=== PATIENT | female | born 1995 | race African-American/Black ===

== ENCOUNTER 2018-06-09 11:32 | Outpatient (CLI) | payer OTHER ==
[2018-06-09 13:34] VITALS: BP 113/77
== END 2018-06-09 13:49 | disposition home or self-care (01) ==
LOC: TRG 11:32
PROVIDERS: ATTEND Obstetrics & Gynecology
DX: O47.1 False labor at or after 37 completed weeks of gestation (principal); Z3A.39 39 weeks gestation of pregnancy
CPT/HCPCS: 59025

== ENCOUNTER 2018-06-09 23:34 | Outpatient (CLI) | payer OTHER ==
[2018-06-11 21:44] VITALS: BP 110/56
== END 2018-06-10 00:52 | disposition home or self-care (01) ==
LOC: TRG 23:34
PROVIDERS: ATTEND Obstetrics & Gynecology
DX: O62.8 Other abnormalities of forces of labor (principal); Z3A.39 39 weeks gestation of pregnancy
CPT/HCPCS: 59025

== ENCOUNTER 2018-06-10 19:35 | Outpatient (CLI) | payer OTHER ==
[2018-06-10 23:05] VITALS: BP 110/74
[2018-06-10] MEDS ORDERED: VISTARIL PO PRN (23:47)
== END 2018-06-11 00:42 | disposition home or self-care (01) ==
LOC: TRG 19:35
PROVIDERS: ATTEND Obstetrics & Gynecology
DX: O47.1 False labor at or after 37 completed weeks of gestation (principal); Z3A.40 40 weeks gestation of pregnancy
CPT/HCPCS: 59025

== ENCOUNTER 2018-06-11 09:59 | Inpatient (IN) | payer OTHER ==
[2018-06-11] MEDS ORDERED: BRETHINE IVP PRN (11:45)
[2018-06-11] MEDS ORDERED: XYLOCAINE 2% INFILTRATI ONE (11:45)
[2018-06-11] MEDS ORDERED: BRETHINE SUB-Q PRN (11:45)
[2018-06-11] MEDS ORDERED: STADOL IV PRN (11:45)
[2018-06-11] MEDS ORDERED: MINERAL OIL PO PRN (11:45)
[2018-06-11] MEDS ORDERED: SUBLIMAZE IV PRN (11:45)
[2018-06-11] MEDS ORDERED: PITOCin/NS 30 UNIT/500ML 30 UNITS/500 ML BAG IV SCH ×2 (12:00)
[2018-06-11] MEDS ORDERED: LACTATED RINGERS 1,000 ML IV SCH ×2 (12:00→21:00)
[2018-06-11] MEDS ORDERED: PITOCin/NS 20 UNIT/1000ML DRIP 20 UNITS/1,000 ML BAG IV SCH ×2 (12:00→21:00)
[2018-06-11 13:15] LABS: Hematocrit 39.5 % (30.3-42.9); Hemoglobin 13.4 gm/dl (10.1-14.3); Mean Corpuscular HGB Conc 34 % (30-34); Mean Corpuscular Hemoglobin 31 pg (28-32); Mean Corpuscular Volume 91 fl (79-97); Platelet Count 172 K/mm3 (140-440); Red Blood Count 4.36 M/mm3 (3.65-5.03)
--- NOTE | 2018-06-11 13:26 | History and Physical Report ---
History of Present Illness Date of examination: 06/11/18 Date of admission: 06/11/18 10:00 History of present illness: 23 yo active labor. First trimester entry into care at 10 weeks gestation. Uncomplicated course. GBS negative. Denies VB, LOF. +FM reported. Past History Past Medical History: no pertinent history Past Surgical History: no surgical history Family/Genetic History: none Social history: - Obstetrical History Expected Date of Delivery: 06/10/18 Actual Gestation: 40 Week(s) 1 Day(s) : 1 Medications and Allergies Allergies Allergy/AdvReac Type Severity Reaction Status Date / Time No Known Allergies Allergy Verified 06/11/18 13:59 Home Medications Medication Instructions Recorded Confirmed Last Taken Type No Known Home Medications [No 06/11/18 06/11/18 Unknown History Reported Home Medications] Pnv,Calcium 72/Iron/Folic Acid 1 each PO DAILY 06/11/18 06/11/18 3 Days Ago History [Pnv Plus Multivit Tab] ~06/08/18 Active Meds: Active Medications Butorphanol Tartrate (Stadol) 2 mg IV Q2H PRN PRN Reason: Pain , Severe (7-10) Ephedrine Sulfate (Ephedrine Sulfate) 10 mg IV Q2M PRN PRN Reason: Hypotension Fentanyl (Sublimaze) 100 mcg IV Q2H PRN PRN Reason: Labor Pain Lactated Ringer's (Lactated Ringers) 1,000 mls @ 125 mls/hr IV DIRECT KENZIE Oxytocin/Sodium Chloride (Pitocin/Ns 20 Unit/1000ml Drip) 20 units in 1,000 mls @ 125 mls/hr IV DIRECT KENZIE Oxytocin/Sodium Chloride (Pitocin/Ns 30 Unit/500ml) 30 units in 500 mls @ 1 mls /hr IV TITR KENZIE; Protocol Oxytocin/Sodium Chloride (Pitocin/Ns 30 Unit/500ml) 30 units in 500 mls @ 4 mls /hr IV TITR KENZIE; Protocol Mineral Oil (Mineral Oil) 30 ml PO QHS PRN PRN Reason: Constipation Terbutaline Sulfate (Brethine) 0.25 mg SUB-Q ONCE PRN PRN Reason: Hyperstimulation/Hypertonicity Terbutaline Sulfate (Brethine) 0.25 mg IVP ONCE PRN PRN Reason: Hyperstimulation/Hypertonicity Review of Systems All systems: negative Genitourinary: normal appearance, contractions, no vaginal bleeding, no leakage of fluid - Physical Exam Abdomen: Positive: normal appearance, soft Genitourinary (Female): Positive: normal external genitalia, normal perenium - Obstetrical FHR: category 1 Uterine Contraction Monitor Mode: External Results Result Diagrams: 06/11/18 12:53 Abnormal lab results 06/11/18 Range/Units 12:53 WBC 14.0 H (4.5-11.0) K/mm3 RDW 13.0 L (13.2-15.2) % All other labs normal. Assessment and Plan A: IUP at term Active Labor P: Anticipate
[2018-06-11] MEDS ORDERED: NACL 0.9% 500 ML 500 ML IV ONE (17:53)
--- NOTE | 2018-06-11 17:53 | Progress Note ---
Assessment and Plan A: IUP at 40.1 Transitional Labor Gurjit Vaginal Bleeding P: consult-[facility] AROM Pitocin off Close erin't Type cross match Subjective - Subjective Date of service: 06/11/18 Interval history: 23 yo active labor. First trimester entry into care at 10 weeks gestation. Uncomplicated course. GBS negative. Denies VB, LOF. +FM reported. Patient reports: vaginal bleeding, contractions, other, no new complaints, no loss of fluid Objective - Vital Signs Vital Signs: Vital Signs - 12hr 06/11/18 06/11/18 06/11/18 14:11 14:15 14:16 Temperature 98.2 F Pulse Rate 76 82 Blood Pressure 123/74 O2 Sat by Pulse 95 Oximetry 06/11/18 06/11/18 06/11/18 14:21 14:24 14:26 Temperature Pulse Rate 74 55 L 86 Blood Pressure O2 Sat by Pulse 96 81 L 95 Oximetry 06/11/18 06/11/18 06/11/18 14:30 14:31 14:42 Temperature Pulse Rate 71 70 70 Blood Pressure O2 Sat by Pulse 94 96 97 Oximetry 06/11/18 06/11/18 06/11/18 14:47 14:52 14:55 Temperature Pulse Rate 73 77 79 Blood Pressure O2 Sat by Pulse 96 97 93 Oximetry 06/11/18 06/11/18 06/11/18 14:58 15:03 15:08 Temperature Pulse Rate 93 H 72 64 Blood Pressure O2 Sat by Pulse 97 96 96 Oximetry 06/11/18 06/11/18 06/11/18 15:13 15:18 15:21 Temperature Pulse Rate 71 89 72 Blood Pressure O2 Sat by Pulse 96 97 94 Oximetry 06/11/18 06/11/18 06/11/18 15:23 15:28 15:33 Temperature Pulse Rate 75 68 68 Blood Pressure O2 Sat by Pulse 96 97 97 Oximetry 06/11/18 06/11/18 06/11/18 15:35 15:38 15:43 Temperature Pulse Rate 83 80 Blood Pressure O2 Sat by Pulse 25 L 96 97 Oximetry 06/11/18 06/11/18 06/11/18 15:45 15:48 15:53 Temperature Pulse Rate 66 78 84 Blood Pressure 129/82 O2 Sat by Pulse 96 96 Oximetry 06/11/18 06/11/18 06/11/18 15:58 16:02 16:03 Temperature Pulse Rate 92 H 94 H 66 Blood Pressure O2 Sat by Pulse 96 94 95 Oximetry 06/11/18 06/11/18 06/11/18 16:08 16:13 16:18 Temperature Pulse Rate 84 82 70 Blood Pressure O2 Sat by Pulse 97 96 98 Oximetry 06/11/18 16:23 Temperature Pulse Rate 75 Blood Pressure O2 Sat by Pulse 97 Oximetry - Exam Breasts: deferred Abdomen: Present: normal appearance, soft. Absent: distention FHR: category 1 Uterine Contraction Monitor Mode: External Cervical Dilatation: 7 Cervical Effacement Percentage: 90 station: -1 Uterine Contraction Frequency (min): 2-4 Uterine Contraction Duration: 60-80 Uterine Contraction Pattern: Regular Uterine Tone Measurement Phase: Resting Uterine Contraction Intensity: Moderate - Labs Labs: Abnormal Labs 06/11/18 12:53 WBC 14.0 H RDW 13.0 L Laboratory Results - last 24 hr 06/11/18 06/11/18 12:53 12:53 WBC 14.0 H RBC 4.36 Hgb 13.4 Hct 39.5 MCV 91 MCH 31 MCHC 34 RDW 13.0 L Plt Count 172 Blood Type B POSITIVE Antibody Screen Negative
--- NOTE | 2018-06-11 18:00 | History and Physical Report ---
History of Present Illness Date of examination: 06/11/18 Date of admission: 06/11/18 10:00 History of present illness: 21 yo LMP EDC 06/12/18 @ 39.6 weeks gestation presented to triage 3 cm and changed to 4cm after 2hours of ambulation. Currently 5cm. Transfer into care at 36 weeks gestation. H/o PIH and IUGR previous with 36 week induction. Questionable history of thyroid dysfunction. Ascus pap with HPV. Negative GBS. Past History Past Medical History: no pertinent history Past Surgical History: no surgical history Family/Genetic History: none Social history: no significant social history, - Obstetrical History Expected Date of Delivery: 06/12/18 Actual Gestation: 39 Week(s) 6 Day(s) : 2 Para: 1 Hx # Term Pregnancies: 0 Number of Pregnancies: 1 Number of Living Children: 1 Medications and Allergies Allergies Allergy/AdvReac Type Severity Reaction Status Date / Time No Known Allergies Allergy Verified 06/11/18 13:59 Home Medications Medication Instructions Recorded Confirmed Last Taken Type No Known Home Medications [No 06/11/18 06/11/18 Unknown History Reported Home Medications] Pnv,Calcium 72/Iron/Folic Acid 1 each PO DAILY 06/11/18 06/11/18 3 Days Ago History [Pnv Plus Multivit Tab] ~06/08/18 Active Meds: Active Medications Butorphanol Tartrate (Stadol) 2 mg IV Q2H PRN PRN Reason: Pain , Severe (7-10) Ephedrine Sulfate (Ephedrine Sulfate) 10 mg IV Q2M PRN PRN Reason: Hypotension Fentanyl (Sublimaze) 100 mcg IV Q2H PRN PRN Reason: Labor Pain Lactated Ringer's (Lactated Ringers) 1,000 mls @ 125 mls/hr IV DIRECT KENZIE Last Admin: 06/11/18 15:54 Dose: 125 mls/hr Oxytocin/Sodium Chloride (Pitocin/Ns 20 Unit/1000ml Drip) 20 units in 1,000 mls @ 125 mls/hr IV DIRECT KENZIE Oxytocin/Sodium Chloride (Pitocin/Ns 30 Unit/500ml) 30 units in 500 mls @ 1 mls /hr IV TITR KENZIE; Protocol Oxytocin/Sodium Chloride (Pitocin/Ns 30 Unit/500ml) 30 units in 500 mls @ 4 mls /hr IV TITR KENZIE; Protocol Last Admin: 06/11/18 15:57 Dose: 4 ml/hr, 4 mls/hr Sodium Chloride (Nacl 0.9% 500 Ml) 500 mls @ 0 mls/hr IV ONCE ONE Stop: 06/11/18 17:54 Mineral Oil (Mineral Oil) 30 ml PO QHS PRN PRN Reason: Constipation Terbutaline Sulfate (Brethine) 0.25 mg SUB-Q ONCE PRN PRN Reason: Hyperstimulation/Hypertonicity Terbutaline Sulfate (Brethine) 0.25 mg IVP ONCE PRN PRN Reason: Hyperstimulation/Hypertonicity - Vital Signs Vital signs: Vital Signs Temp 98.2 F 06/11/18 14:11 Temp Pulse Resp BP Pulse Ox 98.2 F 75 129/82 97 06/11/18 14:11 06/11/18 16:23 06/11/18 15:45 06/11/18 16:23 Results Result Diagrams: 06/11/18 12:53 Abnormal lab results 06/11/18 06/11/18 Range/Units 12:53 12:53 WBC 14.0 H (4.5-11.0) K/mm3 RDW 13.0 L (13.2-15.2) % Crossmatch See Detail All other labs normal.
[2018-06-11] MEDS ORDERED: XYLOCAINE MPF 2% ONE ×4 (20:07→22:08)
[2018-06-11] MEDS ORDERED: PEPCID IV ONE (20:16)
[2018-06-11] MEDS ORDERED: BICITRA PO ONE (20:16)
[2018-06-11] MEDS ORDERED: REGLAN IV ONE (20:16)
--- NOTE | 2018-06-11 20:22 | Progress Note ---
Assessment and Plan O: complete since 1839, active pushing, minimal descent moderate bleeding, non active A: IUP at term second stage of arrest of descent maternal exhaustion maternal bleeding P: at , evaluated Primary C/S called Subjective - Subjective Date of service: 06/11/18 Patient reports: vaginal bleeding (moderate bleeding, small clots), contractions , other, no new complaints, no loss of fluid Objective - Vital Signs Vital Signs: Vital Signs - 12hr 06/11/18 06/11/18 06/11/18 14:11 14:15 14:16 Temperature 98.2 F Pulse Rate 76 82 Respiratory Rate Blood Pressure 123/74 O2 Sat by Pulse 95 Oximetry 06/11/18 06/11/18 06/11/18 14:21 14:24 14:26 Temperature Pulse Rate 74 55 L 86 Respiratory Rate Blood Pressure O2 Sat by Pulse 96 81 L 95 Oximetry 06/11/18 06/11/18 06/11/18 14:30 14:31 14:42 Temperature Pulse Rate 71 70 70 Respiratory Rate Blood Pressure O2 Sat by Pulse 94 96 97 Oximetry 06/11/18 06/11/18 06/11/18 14:47 14:52 14:55 Temperature Pulse Rate 73 77 79 Respiratory Rate Blood Pressure O2 Sat by Pulse 96 97 93 Oximetry 06/11/18 06/11/18 06/11/18 14:58 15:03 15:08 Temperature Pulse Rate 93 H 72 64 Respiratory Rate Blood Pressure O2 Sat by Pulse 97 96 96 Oximetry 06/11/18 06/11/18 06/11/18 15:13 15:18 15:21 Temperature Pulse Rate 71 89 72 Respiratory Rate Blood Pressure O2 Sat by Pulse 96 97 94 Oximetry 06/11/18 06/11/18 06/11/18 15:23 15:28 15:33 Temperature Pulse Rate 75 68 68 Respiratory Rate Blood Pressure O2 Sat by Pulse 96 97 97 Oximetry 06/11/18 06/11/18 06/11/18 15:35 15:38 15:43 Temperature Pulse Rate 83 80 Respiratory Rate Blood Pressure O2 Sat by Pulse 25 L 96 97 Oximetry 06/11/18 06/11/18 06/11/18 15:45 15:48 15:53 Temperature Pulse Rate 66 78 84 Respiratory Rate Blood Pressure 129/82 O2 Sat by Pulse 96 96 Oximetry 06/11/18 06/11/18 06/11/18 15:58 16:02 16:03 Temperature Pulse Rate 92 H 94 H 66 Respiratory Rate Blood Pressure O2 Sat by Pulse 96 94 95 Oximetry 06/11/18 06/11/18 06/11/18 16:08 16:13 16:18 Temperature Pulse Rate 84 82 70 Respiratory Rate Blood Pressure O2 Sat by Pulse 97 96 98 Oximetry 06/11/18 06/11/18 06/11/18 16:23 18:07 19:16 Temperature 98.7 F 98.5 F Pulse Rate 75 Respiratory 20 Rate Blood Pressure O2 Sat by Pulse 97 Oximetry - Exam Breasts: deferred FHR: category 2 FHR comments: minimal variability Uterine Contraction Monitor Mode: External Cervical Dilatation: 10 Cervical Effacement Percentage: 100 Uterine Contraction Pattern: Regular Uterine Tone Measurement Phase: Resting Uterine Contraction Intensity: Strong/Firm - Labs Labs: Abnormal Labs 06/11/18 06/11/18 12:53 12:53 WBC 14.0 H RDW 13.0 L Crossmatch See Detail Laboratory Results - last 24 hr 06/11/18 06/11/18 12:53 12:53 WBC 14.0 H RBC 4.36 Hgb 13.4 Hct 39.5 MCV 91 MCH 31 MCHC 34 RDW 13.0 L Plt Count 172 Blood Type B POSITIVE Antibody Screen Negative Crossmatch See Detail
[2018-06-11] MEDS ORDERED: ANCEF/STERILE WATER 2 GM/20 ML 2 GM/20 ML SYRINGE IV NR (21:00)
--- NOTE | 2018-06-11 21:09 | Event Note ---
Date: 06/11/18
[2018-06-11] MEDS ORDERED: NARCAN 0.4 MG/1 ML IV PRN ×3 (21:12→22:55)
[2018-06-11] MEDS ORDERED: BENADRYL IV PRN (21:12)
[2018-06-11] MEDS ORDERED: PHENERGAN PR PRN (21:12)
[2018-06-11] MEDS ORDERED: PHENERGAN PO PRN (21:12)
[2018-06-11] MEDS ORDERED: DILAUDID IV PRN (21:12)
[2018-06-11] MEDS ORDERED: ZOFRAN IV PRN (21:12)
--- NOTE | 2018-06-11 21:12 | Anesthesia Consultation ---
Anesthesia Consult and Med Hx Date of service: 06/11/18 - Airway Anesthetic Teeth Evaluation: Good ROM Head & Neck: Adequate Mental/Hyoid Distance: Adequate Mallampati Class: Class II Intubation Access Assessment: Probably Good - Pre-Operative Health Status ASA Pre-Surgery Classification: ASA2 Proposed Anesthetic Plan: Epidural, Spinal - Pulmonary Hx Asthma: No COPD: No Hx Pneumonia: No - Cardiovascular System Hx Hypertension: No - Central Nervous System Hx Seizures: No Hx Psychiatric Problems: No - Endocrine Hx Renal Disease: No Hx End Stage Renal Disease: No Hx Hypothyroidism: No Hx Hyperthyroidism: No - Hematic Hx Anemia: No Hx Sickle Cell Disease: No - Other Systems Hx Alcohol Use: No
[2018-06-11] MEDS ORDERED: TORADOL IV PRN (21:14)
[2018-06-11] MEDS ORDERED: TORADOL ONE (21:52)
[2018-06-11] MEDS ORDERED: ANCEF/STERILE WATER 2 GM/20 ML IV ONE (21:56)
[2018-06-11] MEDS ORDERED: SODIUM CHLORIDE FLUSH SYRINGE 10 ML IV PRN (22:00)
[2018-06-11] MEDS ORDERED: WATER FOR IRRIG STERILE IR ONE (22:10)
[2018-06-11] MEDS ORDERED: NACL 0.9% IR ONE (22:10)
[2018-06-11] MEDS: PITOCin/NS 20 UNIT/1000ML DRIP 20 UNITS/1,000 ML BAG IV SCH ×2 (22:14→23:00)
[2018-06-11] MEDS ORDERED: ZOFRAN ONE (22:28)
[2018-06-11] MEDS ORDERED: VERSED IV ONE (22:30)
[2018-06-11] MEDS ORDERED: MORPHINE IV PRN (22:55)
[2018-06-11] MEDS ORDERED: MYLICON PO PRN (22:55)
[2018-06-11] MEDS ORDERED: TUCKS PAD TP PRN (22:55)
[2018-06-11] MEDS ORDERED: PERCOCET 5/325 PO PRN (22:55)
[2018-06-11] MEDS ORDERED: TYLENOL PO PRN (22:55)
[2018-06-11] MEDS ORDERED: MILK OF MAGNESIA PO PRN (22:55)
[2018-06-11] MEDS ORDERED: LANSINOH TP PRN (22:55)
[2018-06-11] MEDS ORDERED: NORCO 5/325 PO PRN (22:55)
[2018-06-11] MEDS ORDERED: SENOKOT PO PRN (22:55)
[2018-06-11] MEDS ORDERED: SODIUM CHLORIDE FLUSH SYRINGE 10 ML IV NR (23:00)
--- NOTE | 2018-06-11 23:06 | Procedure Note ---
OB Delivery Note - Delivery Date of Delivery: 06/11/18 Surgeon: PHILIPP LEONARDO Estimated blood loss: 500cc - Section Preop diagnosis: arrest of descent Postop diagnosis: same section procedure: section Disposition: PACU Complications: none Narrative: see op note - Infant A at 1 minute: 8 at 5 minutes: 9 Gender: Male (7 pounds 11 oz)
[2018-06-11] MEDS ORDERED: CYTOTEC VG ONE ×2 (23:07)
[2018-06-11] MEDS ORDERED: CYTOTEC ONE ×2 (23:07)
[2018-06-11] MEDS ORDERED: DEMEROL ONE (23:08)
[2018-06-11] MEDS ORDERED: BENADRYL ONE (23:10)
--- NOTE | 2018-06-11 23:24 | Operative Report ---
Operative Report Operative Report: DATE OF OPERATION:06/11/18 PREOPERATIVE DIAGNOSES: 1. Intrauterine gestation at 40+1 weeks, in active labor, second stage. 2. Arrest of descent. 3. Persistent occiput posterior position. 4. Vaginal bleeding suspect abruption POSTOPERATIVE DIAGNOSES: 1. Intrauterine gestation at 40+1 weeks, in active labor, second stage. 2. Arrest of descent. 3. Persistent occiput posterior position. 4. Delivery of viable, male OPERATION PERFORMED: Primary low transverse section. SURGEON: Mary Contreras MD ANESTHESIA: Epidural. COMPLICATIONS: None. ESTIMATED BLOOD LOSS: 500 mL. DRAINS: Perera catheter to the bladder. SPECIMENS TO PATHOLOGY: placenta to path OPERATIVE FINDINGS: A viable male infant with Apgars of 8 and 9 and birthweight of 8 pounds 11 ounces was delivered from a cephalic presentation, persistent occiput posterior position. There was marked caput and molding present on the head. The cord contained 3 vessels. There was normal anterior fundal placenta. The amniotic fluid was clear. The uterus, fallopian tubes and ovaries were normal. DESCRIPTION OF OPERATION: The patient was brought to the operating suite in stable condition with epidural anesthesia on board and an indwelling catheter in place in the bladder. The patient was placed supine on the operating room table and rolled to her left side with a wedge. The abdomen was prepped and draped in standard fashion for section. After testing with forceps to assure an adequate anesthetic level, the surgery was commenced. We had counseled the patient extensively regarding the risks of the surgery including but not limited to stroke, embolus, phlebitis, pain, infection, hemorrhage, as well as injury to the and the internal organs such as the bowel, bladder, blood vessels, nerves, kidneys, ureters and pelvic organs. The patient was aware of the postoperative morbidity issues and recovery timeframes. The patient was aware she can form adhesions, which can result in obstruction of loop of bowel or ureter or chronic pain. She was aware that should she have hemorrhage and require blood transfusion, there was a small chance for exposure to hepatitis or HIV disease. With the scalpel, a Pfannenstiel skin incision was made. Dissection was carried down sharply through the subcutaneous tissues and fascia in a transverse plane with the scalpel, electrocautery and curved Dey scissors. The fascia was sharply freed up superiorly and inferiorly from the underlying rectus muscles, which were bluntly and sharply divided. The peritoneum was entered carefully in a clear space with a curved hemostat. The peritoneal incision was then extended vertically with Metzenbaum scissors. A retractor and bladder blade were placed. A bladder flap was created by incising transversely through the peritoneum and vesicouterine fold and then bluntly dissecting the bladder distally. With the scalpel, a low transverse hysterotomy was commenced. The serosa and myometrium were scored with the scalpel. The uterine cavity was actually entered bluntly with a curved hemostat. The uterine incision was then extended laterally with the yard motor operator's fingers. An intrauterine hand was placed and the head of the infant was brought up out of the pelvis into the uterine incision. With fundal pressure, he was delivered without difficulty. The nasopharynx and oropharynx were suctioned. The cord was doubly clamped and transected. The infant was then handed off to the nursery personnel. Apgars were good at 8 and 9. A cord pH was obtained, which subsequently revealed a normal value. Further cord blood was collected for routine testing. Intravenous Pitocin and antibiotics were administered. The placenta was manually removed. The uterine cavity was then curetted with a dry sponge and freed of the remaining membranes. The edges of the uterine incision were grasped with [place] clamps. With the massage and the Pitocin, the uterus began to firm up normally. The uterine incision was then closed in 2 layers of 0 Vicryl sutures. The first suture was placed to the endometrium and myometrium. The second suture was placed through the endopelvic fascia and also reincorporated the bladder flap peritoneum. Peritoneal lavage was then performed. The pelvis and gutters were irrigated and suctioned and cleared of all blood and clots and amniotic fluid. The uterine incision was reinspected to assure hemostasis. The uterus, tubes and ovaries were inspected and were normal. Once we were satisfied with the hemostasis, attention was turned to closure of the abdominal incision. The peritoneum, muscles and fascia were closed in layers using 0-Vicryl sutures. The subcutaneous tissue was closed with 3-0 plain sutures. The skin was closed with a subcuticular suture of 4-0 Vicryl followed by benzoin, Steri-Strips and a Telfa dressing. The patient was moved to the recovery room in stable condition with the Perera catheter draining clear urine. Instruments, sponge and needle counts were reported as correct. Estimated blood loss was 700 mL. The nurse called for bleeding of 200 cc. Cytotec 1000ug placed per rectum and uterus noted to be firm. Speculum placed in vagina clots removed. NO further bleeding noted. Patient tolerated procedure well. .
[2018-06-12 00:30] LABS: Hematocrit 37.1 % (30.3-42.9); Hemoglobin 12.3 gm/dl (10.1-14.3); Mean Corpuscular HGB Conc 33 % (30-34); Mean Corpuscular Hemoglobin 31 pg (28-32); Mean Corpuscular Volume 92 fl (79-97); Platelet Count 176 K/mm3 (140-440); Red Blood Count 4.01 M/mm3 (3.65-5.03); Red Cell Distribution Width 13.3 % (13.2-15.2)
[2018-06-12] MEDS: D5LR 1,000 ML IV SCH ×2 (01:14→09:38)
[2018-06-12 08:53] LABS: Hematocrit 32.8 % (30.3-42.9)
[2018-06-12] MEDS: MORPHINE IV PRN ×2 (09:39→13:40)
[2018-06-12] MEDS: FEOSOL PO SCH (11:32)
[2018-06-12] MEDS: PRENATAL VITAMIN PO SCH (11:32)
--- NOTE | 2018-06-12 20:39 | Progress Note ---
Assessment and Plan A: POD#1 s/p primary , fever P: Monitor fever curve. Close clinical monitoring. Change pain medication regimen. Subjective - Subjective Date of service: 06/12/18 Principal diagnosis: s/p primary section Interval history: Pt reports poor pain control. Bleeding decreasing. Patient reports: appetite normal, pain well controlled, ambulating normally, no voiding normally (swartz in place ), no flatus, no bowel movement [place]: doing well Objective - Vital Signs Latest vital signs: Vital Signs Temp Pulse Resp BP BP Pulse Ox 06/12/18 17:06 98.6 F 76 18 105/54 06/12/18 09:02 98.4 F 80 18 104/62 06/12/18 06:21 98.5 F 74 18 105/51 96 06/12/18 02:45 100.0 F H 06/12/18 01:19 101.1 F H 95 H 20 117/61 96 06/12/18 00:25 99.9 F H 88 15 116/63 100 06/12/18 00:20 88 16 112/64 99 06/12/18 00:15 89 15 108/53 100 06/12/18 00:10 91 H 18 112/71 99 06/12/18 00:05 87 14 119/68 100 06/12/18 00:00 90 16 124/65 100 06/11/18 23:55 90 14 120/60 100 06/11/18 23:50 97 H 18 128/66 100 06/11/18 23:45 96 H 20 122/69 99 06/11/18 23:40 102 H 20 126/73 99 06/11/18 23:35 91 H 20 127/78 100 06/11/18 23:30 105 H 20 115/66 100 06/11/18 23:25 98.8 F 104 H 18 109/63 100 06/11/18 21:02 114 H 144/62 06/11/18 21:00 120 H 131/58 Intake and Output 06/12/18 06/12/18 06/12/18 06:59 14:59 22:59 Intake Total 473.574 2634 120 Output Total 500 Balance -048.233 0071 120 Intake: IV 855.908 2817 D5lr 1,000 ml @ 125 mls/ 1000 hr IV DIRECT KENZIE Rx#: [id number] PITOCin/NS 20 UNIT/1000ML 191.667 DRIP 20 units In 1,000 ml @ 250 mls/hr IV DIRECT KENZIE Rx#:[id number] Oral 240 120 Output: Urine 500 Indwelling Catheter 500 Other: Total, Intake Amount 240 120 Total, Output Amount 500 # Voids Indwelling Catheter 2 1 - Exam Breasts: Present: deferred Cardiovascular: Present: Regular rate Lungs: Present: Clear to auscultation Abdomen: Present: soft, abnormal bowel sounds (hypoactive bowel sounds ) Uterus: Present: fundal height at umbilicus Extremities: Present: normal Incision: Present: dressed - Labs Labs: Abnormal lab results 06/11/18 06/11/18 Range/Units 12:53 23:37 WBC 23.2 H (4.5-11.0) K/mm3 Crossmatch See Detail
[2018-06-12] MEDS: PERCOCET 5/325 PO PRN (22:14)
[2018-06-12] MEDS ORDERED: M-M-R II VACCINE SUB-Q ONE (22:57)
[2018-06-13] MEDS: MOTRIN PO PRN (05:52)
[2018-06-13] MEDS ORDERED: BOOSTRIX IM ONE (06:00)
[2018-06-13] MEDS: FEOSOL PO SCH (13:02)
[2018-06-13] MEDS: PRENATAL VITAMIN PO SCH (13:02)
--- NOTE | 2018-06-13 16:15 | Progress Note ---
Assessment and Plan A: POD#2 s/p primary , postop fever P: Pt remained afebrile after initial temp. Continue routine postoperative care. Anticipate discharge tomorrow. Subjective - Subjective Date of service: 06/13/18 Principal diagnosis: s/p primary section Interval history: Pt rfeel much better today. Her pain is well-controlled. Her lochia is decreasing. Patient reports: appetite normal, voiding normally, pain well controlled, flatus , ambulating normally, no bowel movement [place]: doing well Objective - Vital Signs Latest vital signs: Vital Signs Temp Pulse Resp BP BP Pulse Ox 06/13/18 09:08 97.5 F L 70 16 99/58 96 06/13/18 05:52 20 06/13/18 00:22 98.0 F 64 18 92/50 94 06/12/18 22:14 18 06/12/18 21:54 99.5 F 86 18 104/61 92 06/12/18 17:06 98.6 F 76 18 105/54 Intake and Output 06/13/18 06/13/18 06/13/18 06:59 14:59 22:59 Intake Total 120 Balance 120 Intake: Oral 120 Other: Total, Intake Amount 120 # Voids Void 1 - Exam Breasts: Present: deferred Cardiovascular: Present: Regular rate Lungs: Present: Clear to auscultation Abdomen: Present: soft, normal bowel sounds. Absent: distention Uterus: Present: fundal height below umbilicus Extremities: Present: edema (trace ) Incision: Present: dressed
[2018-06-13] MEDS: PERCOCET 5/325 PO PRN (20:08)
[2018-06-14] MEDS: FEOSOL PO SCH (10:23)
[2018-06-14] MEDS: MOTRIN PO PRN (10:23)
[2018-06-14] MEDS: PRENATAL VITAMIN PO SCH (10:23)
--- NOTE | 2018-06-14 13:06 | Discharge Summary ---
Providers - Providers Date of Admission: 06/11/18 10:00 Date of discharge: 06/14/18 Attending physician: PHILIPP CONTRERAS MD Primary care physician: PHILIPP CONTRERAS MD Hospitalization Reason for admission: active labor Delivery: Procedure: section, primary low transverse Procedure details: Please see operative note. Incision: intact Other procedures: none complications: none Discharge diagnosis: IUP at term delivered baby: male Hospital course: Patient was admitted in active labor and ultimately required a primary section which she tolerated well. She did have a postoperative fever on the night of surgery however she remained afebrile subsequently throughout her postoperative course. She met discharge criteria on postoperative day #3 and she will follow up with Dr. Contreras in 2 weeks. Condition at discharge: Stable Disposition: DC-01 TO HOME OR SELFCARE - Discharge Diagnoses (1) Term of male Status: Acute (2) delivery delivered Status: Acute Plan - Discharge Medications Prescriptions: Ferrous Sulfate 325 mg PO TID #90 tablet. Ibuprofen [Motrin] 600 mg PO Q8H PRN #30 tablet PRN Reason: Pain oxyCODONE /ACETAMINOPHEN [Percocet 5/325] 1 tab PO Q6HR PRN #30 tablet PRN Reason: Pain - Provider Discharge Summary Activity: routine, no sex for 6 weeks, no heavy lifting 4 weeks, no strenuous exercise Diet: routine Instructions: routine Additional instructions: [] Smoking cessation referral if applicable(refer to patient education folder for contact #) [] Refer to [facility] Booklet Call your doctor immediately for: * Fever > 100.5 * Heavy vaginal bleeding ( >1 pad per hour) * Severe persistent headache * Shortness of breath * Reddened, hot, painful area to leg or breast * Drainage or odor from incision. * Keep incision clean and dry at all times and follow doctor's instructions regarding bathing/showering - Follow up plan Follow up: PHILIPP CONTRERAS MD [Primary Care Provider] - 06/25/18 (Please call to schedule appt for incision check )
--- NOTE | 2018-06-14 13:06 | Progress Note ---
Assessment and Plan A: POD#3 s/p primary P: Routine care. Discharge today with follow up in [address] Contreras. Subjective - Subjective Date of service: 06/14/18 Principal diagnosis: s/p primary section Interval history: Pt feels well today and would like to go home. No overnight events. Patient reports: appetite normal, voiding normally, pain well controlled, flatus , ambulating normally, no nauseated [place]: doing well Objective - Vital Signs Latest vital signs: Vital Signs Temp Pulse Resp BP Pulse Ox 06/14/18 07:35 98.5 F 74 16 103/63 95 06/14/18 00:56 98.9 F 82 18 101/62 95 06/13/18 20:08 16 06/13/18 16:01 99.2 F 79 16 102/62 96 Intake and Output 06/13/18 06/14/18 06/14/18 22:59 06:59 14:59 Intake Total 120 240 Balance 120 240 Intake: Oral 120 240 Other: Total, Intake Amount 120 240 # Voids Void 1 - Exam Breasts: Present: deferred Cardiovascular: Present: Regular rate Lungs: Present: Clear to auscultation Abdomen: Present: soft, normal bowel sounds Uterus: Present: fundal height below umbilicus Extremities: Present: normal Incision: Present: intact
[2018-06-14 17:17] VITALS: BP 108/69
== END 2018-06-14 17:45 | disposition home or self-care (01) | DRG 765 ==
LOC: TRG 09:59 → LD 10:00 → TRG 10:01 → OB 06-12 00:50
PROVIDERS: ADMIT Obstetrics & Gynecology; ATTEND Obstetrics & Gynecology
PROC: 10D00Z1 Extraction of Products of Conception, Low, Open Approach (ICD-10-PCS; principal; 2018-06-11)
PROC: 3E0234Z Introduction of Serum, Toxoid and Vaccine into Muscle, Percutaneous Approach (ICD-10-PCS; 2018-06-13)
DX: O62.1 Secondary uterine inertia (principal); O86.4 Pyrexia of unknown origin following delivery; O67.9 Intrapartum hemorrhage, unspecified; Z37.0 Single live birth; O64.0XX0 Obstructed labor due to incomplete rotation of fetal head, not applicable or unspecified; Z3A.40 40 weeks gestation of pregnancy; Z23 Encounter for immunization
CPT/HCPCS: 36415; 85014; 85018; 85027; 86850; 86900; 86901; 86920; 88307; 90471; 90715; C9250; J0690; J1200; J1885; J2175; J2250; J2270; J2405; J2590; J2765; J3105; J7120; J7121